=== PATIENT | female | born 1960 | race Caucasian/White ===

== ENCOUNTER 2023-03-06 10:37 | Observation (INO) | payer OTHER ==
[2023-03-06] MEDS ORDERED: ACETAMINOPHEN 1000 MG/100 ML BAG IVPB ONE (11:18)
[2023-03-06] MEDS ORDERED: SODIUM CHLORIDE 0.9% 500 ML INFUS.BAG IV ONE (11:18)
[2023-03-06] MEDS ORDERED: ONDANSETRON 4 MG/2 ML VIAL IVPUSH ONE ×2 (11:18→16:18)
[2023-03-06 12:32] LABS: HEMATOCRIT 46.1 % (32.4-45.2); HEMOGLOBIN 15.6 GM/dL (10.7-15.3); MCH 30.6 pg (25.7-33.7); MEAN CELL VOLUME 90.2 fl (80-96); MEAN PLT VOLUME 7.7 fl (7.5-11.1); PLATELET COUNT 224 10^3/uL (134-434); RDW 12.7 % (11.6-15.6); WHITE BLOOD COUNT 14.7 K/mm3 (4.0-10.0)
[2023-03-06 12:56] LABS: POTASSIUM 3.9 mmol/L (3.5-5.1)
[2023-03-06 12:58] LABS: ALBUMIN 4.2 g/dl (3.4-5.0); BLOOD UREA NITROGEN 28.4 mg/dL (7-18); CALCIUM 9.8 mg/dL (8.5-10.1)
[2023-03-06 13:03] LABS: BILIRUBIN,TOTAL 0.6 mg/dL (0.2-1); TOT PROT 8.4 g/dl (6.4-8.2)
[2023-03-06 13:10] LABS: LACTIC ACID 2.2 mmol/L (0.4-2.0)
[2023-03-06] MEDS ORDERED: MAGNESIUM 1GM/D5W - 1 GM/100 ML IVPB IVPB ONE (13:10)
[2023-03-06] MEDS ORDERED: LACTATED RINGERS SOLUTION 1000 ML INFUS.BAG IV ONE (13:13)
[2023-03-06 13:44] LABS: ANISOCYTOSIS 3+; MACROCYTOSIS 0
[2023-03-06] MEDS ORDERED: ACETAMINOPHEN 1000 MG/100 ML BAG IVPB PRN ×2 (15:34→17:28)
[2023-03-06] MEDS ORDERED: SODIUM CHLORIDE 1,000 ML IV SCH (15:45)
[2023-03-06] MEDS ORDERED: LACTATED RINGERS SOLUTION 1,000 ML/1,000 ML INFUS.BAG IV SCH (17:15)
[2023-03-06] MEDS ORDERED: ONDANSETRON 4 MG/2 ML VIAL IVPUSH PRN (17:27)
[2023-03-06 22:06] VITALS: BMI 24.4
[2023-03-06] MEDS: DEXTROSE 5%-LACTATED RINGERS 1,000 ML IV SCH (23:39)
[2023-03-07 09:48] VITALS: RESP 18
[2023-03-07 09:57] LABS: HEMATOCRIT 36.5 % (32.4-45.2); HEMOGLOBIN 12.4 GM/dL (10.7-15.3); MCH 30.9 pg (25.7-33.7); MEAN CELL VOLUME 90.7 fl (80-96); MEAN PLT VOLUME 7.4 fl (7.5-11.1); PLATELET COUNT 163 10^3/uL (134-434); RBC 4.03 M/mm3 (3.60-5.2); RDW 12.9 % (11.6-15.6); WHITE BLOOD COUNT 3.7 K/mm3 (4.0-10.0)
[2023-03-07 10:15] LABS: POTASSIUM 3.8 mmol/L (3.5-5.1)
[2023-03-07 10:21] LABS: CALCIUM 8.7 mg/dL (8.5-10.1)
[2023-03-07 10:22] LABS: MAGNESIUM 1.9 mg/dL (1.8-2.4)
[2023-03-07 10:26] LABS: CREATININE 0.8 mg/dL (0.55-1.3); PHOSPHOROUS 2.9 mg/dL (2.5-4.9)
[2023-03-07 10:27] LABS: BILIRUBIN,TOTAL 0.6 mg/dL (0.2-1)
[2023-03-07 10:29] LABS: ALBUMIN 2.8 g/dl (3.4-5.0); TOT PROT 5.8 g/dl (6.4-8.2)
[2023-03-07] MEDS: amLODIPine BESYLATE 5 MG TABLET (FP) PO SCH (10:33)
[2023-03-07] MEDS: ENOXAPARIN NA (PORCINE) 40 MG/0.4 ML DISP.SYRIN SQ SCH (10:33)
[2023-03-07] MEDS: DEXTROSE 5%-LACTATED RINGERS 1,000 ML IV SCH ×2 (10:34→20:44)
[2023-03-07 11:14] LABS: ANISOCYTOSIS 1+; MACROCYTOSIS 0
[2023-03-07 12:59] LABS: URINE BARBITURATES NEGATIVE (NEGATIVE)
[2023-03-07 13:00] LABS: URINE BENZODIAZEPINES NEGATIVE (NEGATIVE)
[2023-03-07 13:01] LABS: COCAINE, UR NEGATIVE (NEGATIVE); METHADONE, UR NEGATIVE (NEGATIVE); OPIATES, URI NEGATIVE (NEGATIVE); PHENCYCLIDINE,URINE NEGATIVE (NEGATIVE); URINE AMPHETAMINES NEGATIVE (NEGATIVE)
[2023-03-08 06:34] VITALS: BP 135/85; PULSE 65; TEMP 97.8
[2023-03-08] MEDS: DEXTROSE 5%-LACTATED RINGERS 1,000 ML IV SCH (06:52)
[2023-03-08] MEDS: amLODIPine BESYLATE 5 MG TABLET (FP) PO SCH (09:06)
[2023-03-08] MEDS: ENOXAPARIN NA (PORCINE) 40 MG/0.4 ML DISP.SYRIN SQ SCH ×2 (09:06→09:07)
[2023-03-08 09:32] LABS: HEMATOCRIT 36.8 % (32.4-45.2); HEMOGLOBIN 12.6 GM/dL (10.7-15.3); MCH 30.8 pg (25.7-33.7); MCHC 34.1 g/dl (32.0-36.0); MEAN CELL VOLUME 90.3 fl (80-96); MEAN PLT VOLUME 7.3 fl (7.5-11.1); PLATELET COUNT 179 10^3/uL (134-434); RBC 4.08 M/mm3 (3.60-5.2); WHITE BLOOD COUNT 3.8 K/mm3 (4.0-10.0)
[2023-03-08 10:33] LABS: CALCIUM 9.3 mg/dL (8.5-10.1)
[2023-03-08 10:34] LABS: BLOOD UREA NITROGEN 8.5 mg/dL (7-18)
[2023-03-08 10:37] LABS: CREATININE 0.7 mg/dL (0.55-1.3)
== END 2023-03-08 14:57 | disposition home or self-care (01) ==
LOC: JER 10:37 → JERBED 14:43 → UNDOADMOB 14:43 → INTOOBSV 14:43 → J5S 19:42 → JERBED 19:42 → J5S 03-07 12:43 → JERBED 03-07 12:43
PROVIDERS: ADMIT Internal Medicine; ATTEND Internal Medicine
PROC: 3E033NZ Introduction of Analgesics, Hypnotics, Sedatives into Peripheral Vein, Percutaneous Approach (ICD-10-PCS; principal; 2023-03-07)
PROC: 3E0337Z Introduction of Electrolytic and Water Balance Substance into Peripheral Vein, Percutaneous Approach (ICD-10-PCS; 2023-03-07)
PROC: 3E033GC Introduction of Other Therapeutic Substance into Peripheral Vein, Percutaneous Approach (ICD-10-PCS; 2023-03-07)
DX: K85.90 Acute pancreatitis without necrosis or infection, unspecified (principal); K52.9 Noninfective gastroenteritis and colitis, unspecified; I10 Essential (primary) hypertension; Z29.89 Encounter for other specified prophylactic measures
CPT/HCPCS: 0241U-QW; 36415; 74177-TC; 80048; 80053; 80061; 80307; 82150; 83605; 83690; 83735; 84100; 84478; 85025; 85027; 86140; 87045; 87046; 87209; 87324; 87449; 93005; 93010; 96361; 96374; 96375; 96376; 99285-25; G0378; Q9967

== ENCOUNTER 2023-07-28 13:13 | Emergency (ER) | payer OTHER ==
[2023-07-28 13:39] VITALS: BP 143/90; PULSE 102; RESP 20; TEMP 99.2; BMI 25.4
== END 2023-07-28 15:35 | disposition home or self-care (01) ==
LOC: JER 13:13
DX: U07.1 COVID-19 (principal); M79.10 Myalgia, unspecified site; R51.9 Headache, unspecified; R53.83 Other fatigue; R43.2 Parageusia
CPT/HCPCS: 87635; 99283-25